=== PATIENT | male | born 1975 | race Caucasian/White ===

== ENCOUNTER 2017-04-30 19:43 | Emergency (ER) | payer MEDICAID ==
[2017-04-30 20:08] VITALS: RESP 16
[2017-04-30 21:57] LABS: SQUAMOUS EPITHIAL 1 /hpf (0-5); URINE BACTERIA OCC (<OCC); URINE BILIRUBIN NEGATIVE (NEGATIVE); URINE BLOOD NEGATIVE (NEGATIVE); URINE CLARITY Clear (Clear); URINE COLOR Yellow (YELLOW); URINE GLUCOSE (UA) NORMAL (Normal); URINE LEUKOCYTE ESTERASE 1+ Leu/uL (Negative); URINE NITRATE NEGATIVE (NEGATIVE); URINE PROTEIN NEGATIVE (NEGATIVE)
[2017-04-30 22:10] LABS: BASO # 0.1 K/uL (0.0-0.2); BASO % 0.7 % (0.0-2.0); EOS # 0.1 K/uL (0.0-0.7); EOS % 0.8 % (0.0-4.0); HEMOGLOBIN 13.3 g/dL (12.0-18.0); LYMPH # 3.6 K/uL (1.0-4.3); LYMPH % 50.4 % (20.0-40.0); MEAN CELL VOLUME 83.3 fL (80.0-94.0); MEAN CORPUSCULAR HEMOGLOBIN 27.8 pg (27.0-31.0); MEAN CORPUSCULAR HGB CONC 33.4 g/dL (33.0-37.0); MEAN PLATELET VOLUME 10.1 fL (7.2-11.7); MONO # 0.5 K/uL (0.0-0.8); NEUT # 2.9 K/uL (1.8-7.0); NEUT % 41.1 % (50.0-75.0); NRBC % 0.2 % (0.0-2.0); RBC 4.77 Mil/uL (4.40-5.90); RED CELL DISTRIBUTION WIDTH 12.9 % (11.5-14.5); WHITE BLOOD COUNT 7.1 K/uL (4.8-10.8)
[2017-04-30] MEDS ORDERED: Sodium Chloride 0.9% 1,000 ML IV STA (22:17)
[2017-04-30 22:23] LABS: ALB/GLOB RATIO 1.4 (1.0-2.1); ALT/SGPT 27 U/L (21-72); AST/SGOT 23 U/L (17-59); BLOOD UREA NITROGEN 22 mg/dL (9-20); CALCIUM 8.8 mg/dl (8.6-10.4); GFR AFRICAN-AMERICAN > 60; GFR NON-AFRICAN AMERICAN > 60
[2017-04-30] MEDS ORDERED: Sodium Chloride 0.9% 1,000 ML ONE (22:32)
--- NOTE | 2017-04-30 23:49 | C.PDOC ---
History Of Present Illness 42 y/o male, with PMHx of kidney stones, presents to the ED for evaluation of right-sided flank pain which has been persistent for a few days. Patient was evaluated by his PMD 2 days ago and was given prescription for pain medication and a renal ultrasound. Patient states his pain has continued despite taking the medication and presents to the ED for further evaluation. He denies fever, chills, nausea, vomiting, dysuria, hematuria Time Seen by Provider: 04/30/17 21:40 Chief Complaint (Nursing): Back Pain History Per: Patient History/Exam Limitations: no limitations Onset/Duration Of Symptoms: Days, Persistent Current Symptoms Are (Timing): Still Present Location Of Pain/Discomfort: Other (+right-sided flank pain ) Quality Of Discomfort: "Pain" Associated Symptoms: denies: Fever, Chills, Nausea, Vomiting, Urinary Symptoms ( dysuria/hematuria ) Additional History Per: Patient Past Medical History Reviewed: Historical Data, Nursing Documentation, Vital Signs Vital Signs: Last Vital Signs Temp 97.4 F L 05/01/17 00:10 Pulse 57 L 05/01/17 00:10 Resp 16 05/01/17 00:10 BP 122/73 05/01/17 00:10 Pulse Ox 100 05/01/17 03:46 - Medical History PMH: Chronic Kidney Disease Surgical History: No Surg Hx Family History: States: Unknown Family Hx - Social History Hx Alcohol Use: No Hx Substance Use: No Review Of Systems Constitutional: Negative for: Fever, Chills Gastrointestinal: Negative for: Nausea, Vomiting Genitourinary: Negative for: Dysuria, Hematuria Musculoskeletal: Positive for: Other (+right-sided flank pain ) Physical Exam - Physical Exam Appears: Non-toxic, No Acute Distress Skin: Normal Color, Warm, Dry Head: Atraumatic, Normacephalic Eye(s): bilateral: Normal Inspection Oral Mucosa: Moist Neck: Supple Chest: Symmetrical, No Deformity, No Tenderness Cardiovascular: Rhythm Regular, No Murmur Respiratory: Normal Breath Sounds, No Rales, No Rhonchi, No Wheezing Gastrointestinal/Abdominal: Soft, Tenderness (mild to mid-right abdomen ), No Guarding, No Rebound, No Other (RLQ tenderness ) Back: Other (+mild tenderness to right flank on palpation ) Extremity: Normal ROM, Capillary Refill (less than 2 seconds ) Neurological/Psych: Normal Speech, Normal Cognition Gait: Steady ED Course And Treatment - Laboratory Results Result Diagrams: 04/30/17 22:06 04/30/17 22:06 O2 Sat by Pulse Oximetry: 100 (on RA) Pulse Ox Interpretation: Normal - CT Scan/US CT A/P Other Rad Studies (CT/US): Read By Radiologist, Radiology Report Reviewed CT/US Interpretation: EXAM: CT Abdomen and Pelvis Without Intravenous Contrast. CLINICAL HISTORY: 42 years old, male; Pain; Abdominal pain; Flank; Right lower quadrant (rlq); Additional info: Abd pain,. right flank. TECHNIQUE : Axial computed tomography images of the abdomen and pelvis without intravenous contrast. This. CT exam was performed using one or more of the following dose reduction techniques: automated. exposure control, adjustment of the mA and/or kV according to patient size, and/or use of iterative. reconstruction technique. Coronal and sagittal reformatted images were created and reviewed. COMPARISON: No relevant prior studies available. FINDINGS: Lower thorax: The bilateral lung bases are clear. ABDOMEN: Liver: Multiple areas of decreased attenuation are identified throughout the liver, statistically. representing cysts for which dedicated ultrasound is suggested. Gallbladder and bile ducts: No acute finding. No calcified stones. No intra- extrahepatic biliary ductal. dilation. Pancreas: Limited evaluation secondary to the lack of intravenous contrast. Spleen: No acute findings. Adrenals: No acute findings. Kidneys and ureters: The bilateral kidneys demonstrate heterogeneous attenuation, possibly related. to motion artifact. A bulky 18 mm stone is identified within the upper pole of the left kidney. No. hydronephrosis is detected bilaterally. PELVIS: Bladder: No acute findings. Reproductive: No acute findings. Appendix: The air filled appendix is of normal caliber (series 3, image 139; series 601, image 45). ABDOMEN and PELVIS : Stomach and bowel: No acute findings. A fat containing umbilical hernia is present, subcentimeter in. size. Peritoneum: No acute findings. Lymph nodes: Limited evaluation without intravenous contrast. Vasculature: No aortic aneurysm. Bones: No acute fracture. IMPRESSION: No obstructive uropathy. Bulky calcification within the left kidney. Heterogeneous attenuation within the bilateral kidneys, for which dedicated ultrasound would provide. additional information. Multiple areas of decreased attenuation within the liver, statistically representing cysts for which. dedicated ultrasound would provide additional information. Progress Note: CT A/P and labs were ordered and reviewed. Patient recieved Motrin PO and IV Fluids. On reassessment, patient is resting comfortably, showing no signs of distress and is stable for discharge. CT scan results were discussed with patient and he is advised to follow up with urologist and undergo renal ultrasound within a timely manner for further evaluation. Disposition Counseled Patient/Family Regarding: Diagnosis, Need For Followup - Disposition Referrals: Carlos Dietz MD [Staff Provider] - Disposition: HOME/ ROUTINE Disposition Time: 23:47 Condition: STABLE Additional Instructions: Please follow up with Urologist Take meds as directed Return to ER if worse Instructions: Kidney Stones (ED) - Clinical Impression Clinical Impression: Kidney stone, Right flank pain - Scribe Statement The provider has reviewed the documentation as recorded by the Scribe (Eda Kessler) All medical record entries made by the Scribe were at my direction and personally dictated by me. I have reviewed the chart and agree that the record accurately reflects my personal performance of the history, physical exam, medical decision making, and the department course for this patient. I have also personally directed, reviewed, and agree with the discharge instructions and disposition.
[2017-05-01 00:10] VITALS: BP 122/73; PULSE 57; TEMP 97.4
[2017-05-01 03:40] VITALS: O2SAT 100
--- NOTE | 2017-05-01 10:22 | CT ---
PROCEDURE: CT Abdomen and Pelvis without intravenous contrast HISTORY: Abdominal pain. Right flank pain. COMPARISON: None. TECHNIQUE: Multiple contiguous axial images were performed through the abdomen and pelvis without intravenous contrast. Subsequently, sagittal and coronal reformatted images were obtained. Radiation dose: Total exam DLP = three hundred fifty-eight mGy-cm. This CT exam was performed using one or more of the following dose reduction techniques: Automated exposure control, adjustment of the mA and/or kV according to patient size, and/or use of iterative reconstruction technique. FINDINGS: LOWER THORAX: 1.2 centimeter focal area of nodular consolidation within the anterior inferior aspect of the right middle lobe. LIVER: Multiple scattered foci of low attenuation seen throughout the liver most of which are too small to adequately characterize for example a hypodensity seen within the right hepatic lobe on series 2, image 28 measures 1.5 centimeters demonstrating a Hounsfield unit attenuation of 9 suggestive for a cyst. GALLBLADDER AND BILE DUCTS: Unremarkable. PANCREAS: Unremarkable. No gross lesion or ductal dilatation. SPLEEN: Unremarkable. ADRENALS: Unremarkable. No mass. KIDNEYS AND URETERS: Heterogeneous attenuation of the kidneys likely related to motion artifact. Bulky 1.8 centimeter calculus identified within upper pole of the left kidney. No gross hydronephrosis on either kidney. Midpole hypodensity in the left kidney measuring 2.5 centimeters demonstrating a Hounsfield unit attenuation of 9 suggestive for a cyst. Additional midpole hypodensity in the right kidney measuring 1 centimeter demonstrating a Hounsfield unit attenuation of 20, indeterminate. VASCULATURE: Grossly preserved. BOWEL: Underdistention and or mild prominence of the sigmoid colon. APPENDIX: Unremarkable. Normal appendix. PERITONEUM: Unremarkable. No free fluid. No free air. LYMPH NODES: Unremarkable. No enlarged lymph nodes. BLADDER: Unremarkable. REPRODUCTIVE: Heterogeneous and prominent prostate with calcification. BONES: Degenerative changes. OTHER FINDINGS: Fat containing umbilical hernia. IMPRESSION: 1.8 centimeter bulky calcification within the left kidney without gross hydronephrosis. Probable 2.5 centimeter left renal cyst. 1 centimeter indeterminate right renal low-attenuation lesion. Additional heterogeneous attenuation of the bilateral kidneys. Correlation with renal ultrasound may be helpful. Scattered hypodensities in the liver most of which are too small to adequately characterize on this noncontrast study. Correlation with a contrast-enhanced study may be helpful if clinically indicated. 1.2 centimeter focal area of nodular consolidation within the anterior inferior aspect of the right middle lobe of the lung. Fat containing umbilical hernia. Underdistention and or mild prominence of the sigmoid colon. Clinical correlation. Heterogeneous and prominent prostate. These findings were preliminarily reported at 11:29 p.[address]. on 04/30/[address] Virgie Lambert from [facility].
== END 2017-05-01 00:14 | disposition home or self-care (01) ==
LOC: C.ER 19:43
DX: N20.0 Calculus of kidney (principal); Z87.442 Personal history of urinary calculi
CPT/HCPCS: 74176; 80053; 81001; 83690; 85025; 99285; J7040